=== PATIENT | female | born 1995 ===

== ENCOUNTER 2023-09-23 07:27 | Day surgery (SDC) | payer OTHER ==
[~2023-09-23 07:27] MED LIST: ABILIFY2 MG; ATIVAN0.5 M1; GLUMETZA500 MG; OPTIMAL D31250 MCG; WELLBUTRIN SR150 MG
[2023-09-23] MEDS ORDERED: TYLENOL325 MG PO (13:11)
[2023-09-23] MEDS ORDERED: POVIDONE-IODINE 118 ML BOTT TOP ONE (13:15)
== END 2023-09-23 17:20 | disposition home or self-care (01) ==
LOC: CIR.AMB 07:27
PROVIDERS: ATTEND Obstetrics & Gynecology Gynecology
DX: N84.0 Polyp of corpus uteri (principal); Z88.6 Allergy status to analgesic agent